=== PATIENT | male | born 1980 | race Caucasian/White ===

== ENCOUNTER 2020-09-30 10:55 | Emergency (ER) | payer OTHER, SELFPAY ==
--- OUTSIDE RECORDS SUMMARY | 2020-09-30 11:19 | XMS REPORT | Clinical Summary ---
:1980 Author Organization [facility] Address [address] [place] [address] Care Team Providers Name Role Phone Estrada Murphy MD Primary Care Provider [phone] Allergies No Known Active Allergies Medications Medication Sig Dispensed Refills Start End Date Status Date ranitidine (Zantac) Take 1 60 tablet 3 12/03/19 Active 150 MG tablet (150 0 21 tabletIndications: mg total) by Gastroesophageal mouth 2 reflux disease, (two) times esophagitis presence a day. not specified pantoprazole TAKE 1 180 tablet 3 Active (PROTONIX) 40 MG EC TABLET(40 0 tabletIndications: MG) BY MOUTH Gastroesophageal TWICE DAILY reflux disease without esophagitis budesonide (RINOCORT 2 sprays 1 Bottle 1 11/21/19 AQUA) 32 into each 9 20 mcg/actuation nasal nostril sprayIndications: daily. Viral URI with cough ranitidine (ZANTAC) Take 1 60 tablet 3 12/03/19 Discontinued 150 MG tablet (150 9 20 (Reorder ) tabletIndications: mg total) by Gastroesophageal mouth 2 reflux disease, (two) times esophagitis presence a day. not specified pantoprazole TAKE 1 180 tablet 0 11/19/19 Discon tinued (PROTONIX) 40 MG EC TABLET(40 9 20 tabletIndications: MG) BY MOUTH Gastroesophageal TWICE DAILY reflux disease without esophagitis pantoprazole TAKE 1 180 tablet 0 12/03/19 Discon tinued (PROTONIX) 40 MG EC TABLET(40 0 20 (Reorder) tabletIndications: MG) BY MOUTH Gastroesophageal TWICE DAILY reflux disease without esophagitis pantoprazole Take 1 180 tablet 3 03/19/20 Discon tinued (PROTONIX) 40 MG EC tablet (40 0 20 tabletIndications: mg total) by Gastroesophageal mouth 2 reflux disease (two) times without esophagitis a day. Active Problems No known active problems Encounters Date Type Specialty Care Team Description 09/22/2020 Travel 09/22/2020 Nurse Triage Access Lillie Hawk RN 09/22/2020 Telephone Access Estrada Murphy MD 03/19/2020 Refill Family Medicine Estrada Murphy Gastroeso phageal reflux MD Jose disease without esophagitis 12/03/2019 Refill Family Medicine Terrie Trevino Gastroe sophageal reflux disease, esophagitis presence not specified; MA Gastroesophagea l reflux disease without esophagitis 11/19/2019 Refill Family Medicine Estrada Murphyo phageal reflux MD Jose disease without esophagitis after 09/30/2019 Immunizations Name Administration Dates Next Due Tdap 10/08/2015 Surgical History Surgery Date Site/Laterality Comments FINGER AMPUTATION MANDIBLE FRACTURE SURGERY Family History Medical History Relation Name Comments No Known Problems Brother No Known Problems Father Colon cancer Mother No Known Problems Sister Relation Name Status Comments Brother Alive Father Mother Alive Sister Alive Social History Tobacco Use Types Packs/Day Years Used Date Current Every Day Smoker Smokeless Tobacco: Never Used Tobacco Cessation: Counseling Given: No Alcohol Use Drinks/Week oz/Week Comments Yes Sex Assigned at Date Recorded Not on file COVID-19 Exposure Response Date Recorded In the last month, have you been in contact with No / Unsure 09/22/2020 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
--- OUTSIDE RECORDS SUMMARY | 2020-09-30 11:20 | XMS REPORT | Continuity of Care Document ---
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 FINGER INJURY Active 10/08/19 [place] [facility] N/A Active 10/08/[address] Center Rodriguez's Resolved 09/05/19 Problem 05/16/2016 right 5th [facility] metatarsalgia 16 digit Medica l (disorder) Center Fracture of Resolved 09/05/18 Problem 05/16/2016 [facility] s mandible, closed 95 Med ical (disorder) [place] Crushing injury Active Problem 05/16/2016 right hand [facility] (disorder) [facility] Center COMPLETE Active [facility] TRAUMATIC MCP Medica l AMPUTATION OF UNS Ce nter Medications Medication Details Route Status Patient Ordering Order Source Instructions Provider Date Acetaminophen 1 tab, PO, [place] 325 [place] / Q6H, PRN for 016 Medical Hydrocodone pain, # 50 Center Bitartrate 10 tab, 0 MG Oral Tablet Refill(s), [[place] 10/325] given to patient Ondansetron 4 mg, Route: Inactive [facility] as IVP, ONCE, 016 Medical Dosing Weight Center 78.182, kg, PRN Nausea & Vomiting, Start date: 05/13/16 17:14:00 CDT Oxycodone Notes: (Same No Longer [place]: Active [facility] Medical Roxicodone) Center Flumazenil Notes: (Same No Longer [facility] as as: Active [facility] Medical Romazicon) Center Naloxone Notes: Same No Longer [facility] as Narcan Active [address] [place] [address] Hydromorphone Notes: (Same No Longer [facility] as: Dilaudid) Active [address] [place] [address] Ancef 2 gm, Route: Inactive [facility] IVPB, ONCE, 016 Medical Dosing Weight Center 78.182, kg, Start date: 05/13/16 16:41:00 CDT, Duration: 1 doses or times, Stop date: 05/13/16 16:41:00 CDT, Surgical Prophylaxis Only; For patients < 120 kg ceFAZolin Notes: Same No Longer [facility] as: Ancef Active [address] [place] [address] Lactated 1,000 mL, No Longer [facility] Ringers 1,000 Rate: tko, Active [facility] Medical mL Route: IV, Center Dosing Weight 78.182 kg, Total Volume: 1,000, Start date: 05/13/16 14:31:00 CDT, Duration: 30 day, Stop date: 06/12/16 14:30:00 CDT Prilosec PO, Daily, 0 Active [facility] Refill(s) [address] [place] [address] non-formulary Refill(s) 0 No Longer [facility] ex[place] [address] Melatonin Bedtime, PRN Active [facility] insomnia, 0 [facility] Medical Refill(s) Center Ondansetron Notes: ([place] Long[place]: Zofran) Active [address] [place] [address] Center MEDICATION WASTE Product Size: 4 mg Product Wasted: ___ mg Oxycodone Notes: ([place] No Longer [place] as: Active [address] [place] [address] Roxicodone) Center Flumazenil Notes: (Same No Longer [place] as: Active [address] [place] [address] Romazicon) Center Naloxone Notes: Same No Longer [facility] as Narcan [address] Hydromorphone Notes: Same No Longer [facility] [place] as: Dilaudid Active [address] [place] [address] docusate sodium 100 mg = 1 [place] 100 mg oral cap, PO, BID, [facility] Medica l capsule # 14 cap, 0 Center Refill(s) Ancef 2 gm, Route: Inactive [facility] IVPB, ONCE, 016 Medical Dosing Weight Center 79.545, kg, Start date: 10/17/15 15:12:00, Duration: 1 doses or times, Stop date: 10/17/15 15:12:00, Surgical Prophylaxis Only; For patients < 120 kg ibuprofen 800 800 mg = 1 [place] mg oral tablet tab, PO, Q8H, 016 Med ical PRN Pain, Center Take with food, # 30 tab, 0 Refill(s) Acetaminophen 1 tab, PO, Active [place] 325 MG / Q6H, PRN for 016 Medical Hydrocodone pain, # 24 Center Bitartrate 10 tab, 0 MG Oral Tablet Refill(s) [[place] 10/325] cephalexin 500 500 mg = 1 Active [place] mg oral tablet tab, PO, QID, 016 Med ical # 40 tab, 0 Center Refill(s) Acetaminophen 1 tab, Route: Inactive [place] 325 MG / PO, Drug 016 Medical Hydrocodone Form: TAB, Center Bitartrate 10 Dosing Weight MG Oral Tablet 79.545, kg, [[place] 10/325] ONCE, STAT, Start date: 10/08/15 16:55:00, Stop date: 10/08/15 16:55:00 Acetaminophen 1 tab, PO, Active [place] 325 MG / Q6H, PRN for 016 Medical Hydrocodone pain, X 6 Center Bitartrate 10 day, # 20 MG Oral Tablet tab, 0 [[place] 10/325] Refill(s) Hydromorphone Notes: [place]: Dilaudid [address] [place] [address] Center Dilaudid 0.5 mg, Inactive [facility] Route: IVP, 016 Medical ONCE, Dosing Center Weight 79.545, kg, Priority: STAT, Start date: 10/08/15 16:16:00, Stop date: 10/08/15 16:16:00 Dilaudid Notes: Same Inactive [facility] as: Dilaudid 016 Medical Center Dilaudid Notes: Same Inactive [facility] as: Dilaudid [address] [place] [address] Center Morphine 4 mg, Route: Inactive [facility] IVP, ONCE, 016 Medical Dosing Weight Center 79.545, kg, Priority: STAT, Start date: 10/08/15 12:08:00, Stop date: 10/08/15 12:08:00 Ondansetron 4 mg, Route: Inactive [facility] as IVP, Drug 016 Medical form: INJ, Center ONCE, Dosing Weight 79.545, kg, Priority: STAT, Start date: 10/08/15 12:08:00, Stop date: 10/08/15 12:08:00 Ancef 2 gm, Route: Inactive [facility] IVPB, ONCE, 016 Medical kg, Priority: Center STAT, Start date: 10/08/15 12:02:00, Stop date: 10/08/15 12:02:00 Allergies, Adverse Reactions, Alerts No Known Medication Allergies Immunizations Immunization Date Given Site Status Last Comments Source Updated diphtheria/pertus 10/08/2015 Left completed Elias Kapoor [place] sis, acel/tetanus deltoid Me dical adult Center Results Order Name Results Value Reference Date Interpretation Comments Lucia rce Range ELECTROLYTES AGAP 14.7 10.0 - 10/08 [facility] 20.0 [facility] ELECTROLYTES eGFR 95 10/08 Result [facility] Comment: The Medical eGFR is Center calculated using the CKD-EPI formula. In most young, healthy individuals the eGFR will be >90 mL/min/1.73m2 . The eGFR declines with age. An eGFR of 60-89 may be normal in some populations, particularly the elderly, for whom the CKD-EPI formula has not been extensively validated. Use of the eGFR is not recommended in the following populations:< br/>
Lilliana viduals with unstable creatinine concentration s, including patients and those with serious co-morbid conditions.<b r/>
Patie nts with extremes in muscle mass or diet.

The data above are obtained from the National Kidney Disease Education Program (NKDEP) which additionally recommends that when the eGFR is used in patients with extremes of body mass index for purposes of drug dosing, the eGFR should be multiplied by the estimated BMI. ELECTROLYTES Creatinine 1.02 0.50 - 10/08 [facility] Lvl 1.40 [facility] ELECTROLYTES Chloride Lvl 106 95 - 109 10/08 [place] [facility] ELECTROLYTES Potassium 3.7 3.5 - 5.1 10/08 [place] /2015 [facility] ELECTROLYTES Sodium Lvl 141 135 - 145 10/08 [place] /2015 Medical Center ELECTROLYTES Calcium Lvl 7.9 8.5 - 10.5 10/08 [place] /2015 [facility] ELECTROLYTES CO2 24 24 - 32 10/08 [facility] ELECTROLYTES BUN 16 7 - 22 10/08 [facility] ELECTROLYTES Glucose Lvl 109 70 - 99 10/08 [place] /2015 Medical Center HEMATOLOGY PT 12.3 12.0 - 10/08 [place] 14.7 /2015 [facility] [place] HEMATOLOGY INR 0.89 0.85 - 10/08 [place] 1.17 /2015 [facility] HEMATOLOGY RBC 4.23 4.70 - 10/08 [place] 6.10 /2015 [facility] HEMATOLOGY Hct 41.8 42.0 - 10/08 [place] 54.0 /2015 [facility] [place] HEMATOLOGY MCV 98.9 80.0 - 10/08 [place] 94.0 /2015 [facility] HEMATOLOGY Hgb 13.9 14.0 - 10/08 [place] 18.0 /2015 [facility] HEMATOLOGY MPV 7.9 7.4 - 10.4 10/08 [facility] HEMATOLOGY Platelet 258 133 - 450 10/08 [facility] [place] HEMATOLOGY MCH 33.0 27.0 - 10/08 [place] 31.0 /2015 [facility] HEMATOLOGY RDW 12.7 11.5 - 10/08 [place] 14.5 /2015 [facility] Center HEMATOLOGY MCHC 33.3 32.0 - 10/08 [place] 36.0 /2015 [facility] Center HEMATOLOGY WBC 9.0 3.7 - 10.4 10/08 [facility] HEMATOLOGY Segs 75.7 45.0 - 02 [place] 75.0 /2016 Medical Center HEMATOLOGY Lymphocytes 14.2 20.0 - 10/08 [place] 40.0 /2016 [facility] HEMATOLOGY Monocytes 8.9 2.0 - 12.0 / [facility] HEMATOLOGY Lymphocytes 1.3 1.0 - 5.5 10/08 [place] # /2015 [facility] HEMATOLOGY Basophils 0.5 0.0 - 1.0 10/08 [facility] HEMATOLOGY Eosinophils 0.7 0.0 - 4.0 10/08 [place] [facility] HEMATOLOGY Monocytes # 0.8 0.0 - 0.8 10/08 [place]2015 [facility] HEMATOLOGY Eosinophils 0.1 0.0 - 0.5 10/08 [place] # /2016 [facility] HEMATOLOGY Segs-Bands # 6.8 1.5 - 8.1 10/08 [place] [facility] IMMUNOLOGY CDC HIV 4th Negative Negative 10/08 [place] GEN (10/08/15 1:22 PM) [facility] Pathology Reports No Data Provided for This Section Diagnostic Reports No Data Provided for This Section Consultation Notes No Data Provided for This Section Discharge Summaries No Data Provided for This Section History and Physicals No Data Provided for This Section Vital Signs Vital Sign Value Date Comments Source Respitory Rate 17 05/13/2016 [facility] [place] Systolic (mm Hg) 149 05/13/2016 [facility] dical Center Diastolic (mm Hg) 101 05/13/2016 [facility] Center Respitory Rate 16 05/13/2016 [facility] Center Systolic (mm Hg) 144 05/13/2016 [facility] dical Center Diastolic (mm Hg) 97 05/13/2016 [facility] Center Weight 78.182 05/13/2016 [facility] BMI Calculated 23.38 05/13/2016 [facility] [place] [facility] Height 182.88 cm 05/13/2016 [facility] Respitory Rate 16 05/13/2016 [facility] [place] [facility] Systolic (mm Hg) 136 05/13/2016 [facility] dical Center Diastolic (mm Hg) 92 05/13/2016 [facility] Center Heart Rate 51 05/13/2016 [facility] Weight 77.273 05/06/2016 [facility] Height 182.88 cm 05/06/2016 [facility] BMI Calculated 23.1 05/06/2016 [facility] [place] [facility] Systolic (mm Hg) 163 10/17/2015 [facility] dical Center Diastolic (mm Hg) 98 10/17/2015 [facility] edical Center Respitory Rate 18 10/17/2015 [facility] [place] [facility] Systolic (mm Hg) 138 10/17/2015 [facility] dical Center Diastolic (mm Hg) 92 10/17/2015 [facility] edical Center Respitory Rate 15 10/17/2015 [facility] [place] [facility] Systolic (mm Hg) 149 10/17/2015 [facility] dical Center Diastolic (mm Hg) 95 10/17/2015 [facility] Respitory Rate 15 10/17/2015 [facility] Heart Rate 73 10/17/2015 [facility] Height 182.88 cm 10/17/2015 [facility] BMI Calculated 23.78 10/17/2015 [facility] Weight 79.545 10/17/2015 [facility] BMI Calculated 23.78 10/13/2015 [facility] Weight 79.545 10/13/2015 [facility] Height 182.88 cm 10/13/2015 [facility] Center Systolic (mm Hg) 149 10/08/2015 [facility] dical Center Diastolic (mm Hg) 89 10/08/2015 [facility] Respitory Rate 16 10/08/2015 [facility] Temperature Oral (F) 97.8 F 10/08/2015 [facility] Heart Rate 60 10/08/2015 [facility] Center Systolic (mm Hg) 135 10/08/2015 [facility] dical Center Diastolic (mm Hg) 82 10/08/2015 [facility] Respitory Rate 16 10/08/2015 [facility] Heart Rate 78 10/08/2015 [facility] Temperature Oral (F) 98.0 F 10/08/2015 [facility] Systolic (mm Hg) 127 10/08/2015 [facility] dical Center Diastolic (mm Hg) 83 10/08/2015 [facility] Heart Rate 82 10/08/2015 [facility] Respitory Rate 16 10/08/2015 [facility] Temperature Oral (F) 97.9 F 10/08/2015 [facility] Weight 79.545 10/08/2015 [facility] Height 182.88 cm 10/08/2015 [facility] BMI Calculated 23.78 10/08/2015 [facility] Encounters Location Location Encounter Encounter Reason Attending ADM DC Stat us Source Details Type Number For Provider Date Date Visit [facility] [id number] Vicente Garcia 10/08 10/08 [facility] Emergency /2015 [facility] [id number] [place] 10/17 10/18 [facility] /20152016 [facility] [id number] [place] 05/13 05/14 [facility] Surgery Free [facility] Procedures Procedure Code Date Perfomer Comments Source Closed reduction [id number] [facility] jaw fracture [facility] Repair of muscle [id number] [facility] hand [facility] Assessment and Plan Assessment and Plan Date Source Extracted from:Title: Plastic Surgery - Hand 10/08/2015 [facility] Author: Gabe Floyd MD Date: 10/08/15 Impression and Plan 35 yo male with traumatic amputation of right small finger at the level of the middle phalanx 1. Patient will need revision amputatio n of right small finger. I discussed with the patient the findings on the xray which are concerning including severe communition of the amputated tip at the leve l of the middle and distal phalanx with intraarticular damage. I also explained to patient the findings of comminuted fracture of the remaining middle phalanx. These concerns regarding the bony struct iure along with the avulsion of extendor and flexor tendons, and mechanism of crush injury make it unlikely that patient will benifit from a replantation of distal tip. I explained to patient that alth ough arterial and nerve can be explored, in likelihood the injuries may not be ammendable to anastomosis. Also, given extend of bony structural injury, injury to tendons; patient unlikely to have any f unction if replantation. It is the alyssa mmendation that patient undergo revision amputation. 2. Patient at first was ammendable to a tawanda plan, but mother who has arrived at bedside does not agree with plan for revision amputation and for discharge prior revision amputation. I discussed with maricarmen helton and patient's mother that althoug h this is an open wound, this did not neccarily need an emergent surgery. I outlined PRS recommendation plan for d/c home today, follow-up with Dr. Cross on Tuesday and from there an elective procedure in the OR can t hen be planned 3. Patient and family do not currently agree with these recommendations and wish to have a second opinion. This was discussed with ER who are making appropriate calls for second opinion Gabe Floyd, [email or web address] Pager#[phone] PGY7 addendum Was notified by ED team that orthopedics had seen patient and agreed with our recommendations regarding revision amputation. They have deffered management back to us. 1. May d/c home, f/u with Dr. Cross in 1-2 days 2. Keflex 3. patient should keep dressings on; if he so chooses, he may remove dressings, place hand under soapy running water, and replace dressings with xerform. 4. Once seen in office, then will plan accordinly for revision amputatio nof right small finger Gabe Floyd, [email or web address] Pager#[phone] Plan of Care No Data Provided for This Section Social History Social History Date Source Social History TypeResponse 05/06/2016 [facility] Substance Abuse Use: None. Alcohol Past, Type Beer. Frequency: Daily. Pre vious treatment: None. Alcohol use interferes with work or home: No. Drinks more than intended: No. Others hurt by drinking: No. Ready to change: No. Household alcohol concerns: No.1 Smoking Status Former smoker; Type: Cigarettes; Exposur e to Tobacco Smoke None; Other Tobacco Frequency 1/2 ppd; Cigarette Smoking Last 365 Days Yes; Reg Smoking Cessation Counseling No2 1quit 2 months [id number] 2 months ago Family History No Data Provided for This Section Advance Directives No Data Provided for This Section Functional Status No Data Provided for This Section
[2020-09-30 16:28] LABS: Absolute Lymphocytes (CBC) 1.4 K/uL (0.7-4.9); Basophils % 0.6 % (0-1.3); Hematocrit 45.5 % (39.6-49.0); Lymphocytes % 23.6 % (15.3-44.8); MPV 7.9 fL (7.6-11.3); RBC Red Blood Cell Count 4.75 M/uL (4.33-5.43)
[2020-09-30 16:36] LABS: Protime INR 0.9
[2020-09-30 16:55] LABS: ALT/SGPT 37 U/L (12-78); Albumin 4.1 g/dL (3.4-5.0); Alkaline Phosphatase 96 U/L (45-117); BUN Blood Urea Nitrogen 12 mg/dL (7-18); Bicarbonate 29 mmol/L (21-32); Bilirubin Direct < 0.1 mg/dL (0-0.2); Bilirubin Total 0.4 mg/dL (0.2-1.0); Glucose Level 124 mg/dL (74-106); Lipase 153 U/L (73-393); Protein, Total 8.4 g/dL (6.4-8.2); Sodium Level 138 mmol/L (136-145)
--- NOTE | 2020-09-30 17:04 | ER ---
Nurse's Notes [facility] Name: Ge Moore Age: 40 yrs Sex: Male : 1980 Arrival Date: 09/30/2020 Time: 10:57 Bed 23 Private MD: Diagnosis: Vomiting Presentation: 09/30 11:46 Chief complaint: Patient states: "I have ulcers and I'm on medication. The last two ss weeks I've been having episodes where I vomit, it takes real sour and there is like a small amount of blood in it.". Coronavirus screen: Client denies travel out of the [place] in the last 14 days. Ebola Screen: Patient denies exposure to infectious person. Patient denies travel to an Ebola-affected area in the 21 days before illness onset. Initial Sepsis Screen: Does the patient meet any 2 criteria? No. Patient's initial sepsis screen is negative. Does the patient have a suspected source of infection? No. Patient's initial sepsis screen is negative. Risk Assessment: Do you want to hurt yourself or someone else? Patient reports no desire to harm self or others. Onset of symptoms was September 2020. 11:46 Method Of Arrival: Ambulatory ss 11:46 Acuity: ERLIN 3 ss Historical: - Allergies: 11:49 No Known Allergies; ss - PMHx: 11:49 peptic ulcers; ss - PSHx: 11:49 jaw repair; finger amputation; ss - Immunization history:: Adult Immunizations up to date. - Social history:: Smoking status: Patient reports the use of cigarette tobacco products, smokes one-half pack cigarettes per day. Screenin:13 Abuse screen: Denies threats or abuse. Nutritional screening: No deficits noted. vg1 Tuberculosis screening: No symptoms or risk factors identified. Fall Risk None identified. Assessment: 16:00 General: Appears in no apparent distress. comfortable, Behavior is calm, cooperative. vg1 Pain: Denies pain. Neuro: Level of Consciousness is awake, alert, obeys commands, Oriented to person, place, time, situation. Cardiovascular: Patient's skin is warm and dry. Respiratory: Airway is patent Respiratory effort is even, unlabored. GI: Reports normal bowel habits, vomiting, blood for about two weeks; some mornings will wake up vomiting and will have dark blood. Patient currently denies diarrhea, nausea. : No signs and/or symptoms were reported regarding the genitourinary system. EENT: Denies difficulty swallowing. Derm: Skin is intact, is healthy with good turgor. Musculoskeletal: Circulation, motion, and sensation intact. 17:27 Reassessment: Patient appears in no apparent distress at this time. Patient and/or vg1 family updated on plan of care and expected duration. Pain level reassessed. Patient is alert, oriented x 3, equal unlabored respirations, skin warm/dry/pink. Vital Signs: 11:46 BP 143 / 98; Pulse 77; Resp 16; Temp 98.4(TE); Pulse Ox 97% on R/A; Weight 79.38 kg; ss Height 6 ft. 0 in. (182.88 cm); Pain 0/10; 16:13 BP 113 / 63; Pulse 66; Resp 16; Pulse Ox 100% on R/A; vg1 17:27 BP 142 / 104; Pulse 72; Resp 16; Pulse Ox 100% on R/A; vg1 11:46 Body Mass Index 23.73 (79.38 kg, 182.88 cm) ED Course: 10:57 Patient arrived in ED. ds1 11:48 Triage completed. ss 11:49 Arm band placed on left wrist. 15:25 Jimi Saavedra PA is PHCP. [facility] 15:26 Corbin Brown MD is Attending Physician. li 15:32 Roxane Trevino, OLIVIA is Primary Nurse. vg1 16:05 Inserted saline lock: 20 gauge in left antecubital area, using aseptic technique. Blood kj1 collected. 16:05 Initial lab(s) drawn, by nv, sent to lab. kj1 16:13 Patient has correct armband on for positive identification. Bed in low position. Call vg1 light in reach. Side rails up X 1. 17:27 No provider procedures requiring assistance completed. IV discontinued, intact, vg1 bleeding controlled, No redness/swelling at site. Pressure dressing applied. Administered Medications: No medications were administered Outcome: 17:03 Discharge ordered by . li 17:27 Discharged to home ambulatory. vg1 17:27 Condition: stable 17:27 Discharge instructions given to patient, Instructed on discharge instructions, follow up and referral plans. Demonstrated understanding of instructions, follow-up care. 17:28 Patient left the ED. vg1 Signatures: Jimi Saavedra PA PA jmm Sanford, Demi ds1 Madeleine Costello, RN RN Fiona Bacon kj1 Roxane Trevino RN RN vg1 Corrections: (The following items were deleted from the chart) 16:19 16:17 Initial lab(s) drawn, by me, sent to lab. kj1 kj1
--- NOTE | 2020-09-30 17:05 | EDPHYS ---
Physician Documentation [facility] Name: Ge Moore Age: 40 yrs Sex: Male : 1980 Arrival Date: 09/30/2020 Time: 10:57 Bed 23 Private MD: ED Physician Corbin Brown HPI: 09/30 15:32 This 40 yrs old Male presents to ER via Ambulatory with complaints of jmm Vomiting Blood. 15:32 The patient presents to the emergency department vomiting blood, a small amount. Onset: jmm The symptoms/episode began/occurred 2 week(s) ago. Abdominal pain: none is appreciated. Modifying factors: The symptoms are alleviated by nothing, the symptoms are aggravated by nothing. Associated signs and symptoms: Pertinent negatives: dark stool, blood in stool. This is a 40 year old male with a history of PUD that presents to the ED with complaints of abnormal vomiting today. Patient states every two days for the past 2 weeks vomiting with a small amount of blood mixed in the vomit. Denies blood in stool, denies dark stools. Denies abdominal pain. . Historical: - Allergies: 11:49 No Known Allergies; ss - PMHx: 11:49 peptic ulcers; ss - PSHx: 11:49 jaw repair; finger amputation; ss - Immunization history:: Adult Immunizations up to date. - Social history:: Smoking status: Patient reports the use of cigarette tobacco products, smokes one-half pack cigarettes per day. ROS: 15:32 Constitutional: Negative for fever, chills, and weight loss, Cardiovascular: Negative jmm for chest pain, palpitations, and edema, Respiratory: Negative for shortness of breath, cough, wheezing, and pleuritic chest pain. 15:32 Abdomen/GI: Positive for vomiting. 15:32 All other systems are negative. Exam: 15:32 Constitutional: This is a well developed, well nourished patient who is awake, alert, jmm and in no acute distress. Head/Face: atraumatic. Eyes: EOMI, no conjunctival erythema appreciated ENT: Moist Mucus Membranes Neck: Trachea midline, Supple Chest/axilla: Normal chest wall appearance and motion. Cardiovascular: Regular rate and rhythm. No edema appreciated Respiratory: Normal respirations, no respiratory distress appreciated 15:32 Skin: General appearance color normal MS/ Extremity: Moves all extremities, no obvious deformities appreciated, no edema noted to the lower extremities Neuro: Awake and alert, normal gait Psych: Behavior is normal, Mood is normal, Patient is cooperative and pleasant 15:32 Abdomen/GI: Inspection: abdomen appears normal, Bowel sounds: normal, Palpation: soft, nontender, in all quadrants. Vital Signs: 11:46 BP 143 / 98; Pulse 77; Resp 16; Temp 98.4(TE); Pulse Ox 97% on R/A; Weight 79.38 kg; ss Height 6 ft. 0 in. (182.88 cm); Pain 0/10; 16:13 BP 113 / 63; Pulse 66; Resp 16; Pulse Ox 100% on R/A; vg1 17:27 BP 142 / 104; Pulse 72; Resp 16; Pulse Ox 100% on R/A; vg1 11:46 Body Mass Index 23.73 (79.38 kg, 182.88 cm) ss MDM: 15:28 Patient medically screened. [facility] 17:02 Data reviewed: vital signs, nurses notes. Counseling: I had a detailed discussion with li the patient and/or guardian regarding: the historical points, exam findings, and any diagnostic results supporting the discharge/admit diagnosis, lab results, the need for outpatient follow up, to return to the emergency department if symptoms worsen or persist or if there are any questions or concerns that arise at home. Refusal of service: The patient/guardian displays adequate decision making capability and despite a detailed discussion of alternatives, benefits, risks, and consequences refuses: CT Scan, MAYANK for hemoccult. 09/30 15:32 Order name: Basic Metabolic Panel [facility] 09/30 15:32 Order name: CBC with Diff [facility] 09/30 15:32 Order name: Hepatic Function [facility] 09/30 15:32 Order name: Lipase [facility] 09/30 15:32 Order name: Type And Screen [facility] 09/30 15:32 Order name: PT-INR; Complete Time: 17:03 [facility] 09/30 15:32 Order name: IV Saline Lock; Complete Time: 16:04 [facility] 09/30 15:32 Order name: Basic Metabolic Panel [facility] 09/30 15:32 Order name: CBC with Automated Diff; Complete Time: 17:03 [facility] 09/30 15:32 Order name: Liver (Hepatic) Function [facility] 09/30 15:32 Order name: Lipase [facility] 09/30 15:32 Order name: Labs collected and sent; Complete Time: 16:04 [facility] 09/30 15:32 Order name: Gown patient; Complete Time: 16:04 [facility] 09/30 16:22 Order name: Labs - recollect needed: recollect type and screen, gregory patient.; bd Complete Time: 16:55 Administered Medications: No medications were administered Disposition: 17:30 Co-signature as Attending Physician, Corbin Brown MD I agree with the assessment and maged plan of care. Disposition: 09/30/20 17:03 Discharged to Home. Impression: Vomiting. - Condition is Stable. - Discharge Instructions: Hematemesis. - Medication Reconciliation Form, Thank You Letter, Antibiotic Education, Prescription Opioid Use, Work release form form. - Follow up: Private Physician; When: 2 - 3 days; Reason: Recheck today's complaints, Continuance of care, Re-evaluation by your physician. Signatures: Dispatcher [employer] [facility] Sheila Lee Corey, MD MD cha Mickail, Joel, PA [facility] Madeleine Costello, RN RN Roxane Burrows, RN RN vg1 Corrections: (The following items were deleted from the chart) 16:18 16:16 Abdomen Pelvis W Con+CT.RAD.BRZ ordered. [facility] 16:18 16:17 Thorax W/ Con+CT.RAD.BRZ ordered. [facility] 17:28 17:03 09/30/2020 17:03 Discharged to Home. Impression: Vomiting. Condition is Stable. vg1 Forms are Medication Reconciliation Form, Thank You Letter, Antibiotic Education, Prescription Opioid Use. Follow up: Private Physician; When: 2 - 3 days; Reason: Recheck today's complaints, Continuance of care, Re-evaluation by your physician. [facility]
[2020-09-30 17:21] LABS: AST/SGOT 35 U/L (15-37); Potassium 3.8 mmol/L (3.5-5.1)
[2020-09-30 17:32] VITALS: TEMP 98.4
[2020-09-30 17:34] VITALS: O2SAT 100
[2020-09-30 17:35] VITALS: BP 142/104
== END 2020-09-30 17:28 | disposition home or self-care (01) ==
LOC: ER 10:55
DX: R11.10 Vomiting, unspecified (principal); F17.210 Nicotine dependence, cigarettes, uncomplicated
CPT/HCPCS: 36415; 80048; 80076; 83690; 85025; 85610; 86850; 86900; 86901; 99283